=== PATIENT | female | born 1935 | race Caucasian/White ===

== ENCOUNTER → 2017-07-04 | Outpatient (CLI) | payer OTHER ==
[~2017-07-04] MED LIST: ASPIR 8181 MG PO; BONE DENSITY C1 EACH PO; CENTRUM SILVER1 EAC4 PO; LIPITOR10 MG PO; [UNRECOGNIZED DRUG - REMARK]
== END ==
LOC: M.RAD 11:07
DX: M81.0 Age-related osteoporosis without current pathological fracture (principal); M85.88 Other specified disorders of bone density and structure, other site; M48.061 Spinal stenosis, lumbar region without neurogenic claudication; M41.84 Other forms of scoliosis, thoracic region; M47.896 Other spondylosis, lumbar region

== ENCOUNTER → 2018-05-22 | Outpatient (CLI) | payer OTHER | LOC: M.RAD 13:26 | DX: Z12.31 Encounter for screening mammogram for malignant neoplasm of breast (principal) ==

== ENCOUNTER 2020-01-31 09:12 | Inpatient (IN) | payer MEDICARE ==
[~2020-01-31] VITALS: Ht 149.9 cm; Wt 43.8 kg
[2020-01-31 09:24] VITALS: BP 127/61
[2020-01-31 09:58] LABS: ABSOLUTE BASOPHILS 0.1 thou/uL (0.0-0.2); ABSOLUTE LYMPHOCYTES 1.3 thou/uL (0.8-5.3); ABSOLUTE MONOCYTES 0.7 thou/uL (0.0-1.2); ABSOLUTE NEUTROPHILS 4.5 thou/uL (1.6-8.1); EOSINOPHILS 0.6 %; HEMATOCRIT 35.8 % (37.0-47.0); HEMOGLOBIN 12.5 gm/dL (12.0-15.0); LYMPHOCYTES 19.5 %; MCH 33.7 pg (26.0-34.0); MCHC 34.9 g/dL (28.0-37.0); MCV 96.6 fL (80.0-100.0); MONOCYTES 10.6 %; NUCLEATED RBCS 0 /100WBC; PLATELET COUNT* 197 thou/uL (150-400); POLYS 68.3 %; RBC 3.71 mil/uL (4.20-5.00); RDW-CV 13.4 % (10.5-14.5); WBC 6.6 thou/uL (4.0-11.0)
[2020-01-31 10:06] LABS: APTT 24.3 Seconds (25.0-31.3); INR 1.1; PROTIME 10.9 Seconds (9.20-11.50)
[2020-01-31 10:17] LABS: CALCIUM 8.8 mg/dL (8.5-10.1)
[2020-01-31 10:22] LABS: ALBUMIN 3.4 g/dL (3.4-5.0); TOTAL BILIRUBIN 0.6 mg/dL (<0.1-1.0); TOTAL PROTEIN 6.9 g/dL (6.4-8.2)
[2020-01-31 11:20] LABS: URINE BILIRUBIN NEGATIVE (Negative); URINE BLOOD NEGATIVE (Negative); URINE CLARITY CLEAR; URINE COLOR YELLOW; URINE GLUCOSE-RANDOM NEGATIVE (Negative); URINE KETONES TRACE (Negative); URINE LEUKOCYTES-REFLEX TRACE (Negative); URINE NITRITE-REFLEX NEGATIVE (Negative); URINE PROTEIN NEGATIVE (Negative); URINE SPECIFIC GRAVITY 1.015 (1.005-1.030); URINE UROBILINOGEN 0.2 E.U./dl (0.2-1.0)
[2020-01-31 11:27] LABS: SQUAMOUS 4-10 Moderate /LPF (0-3)
[2020-01-31 11:28] LABS: BACTERIA-REFLEX None Seen /HPF (None Seen); CASTS None Seen /LPF (None Seen); MUCUS 4-6 Moderate strn/LPF (None Seen); RENAL EPITHELIAL CELLS 0-3 Few /LPF (None Seen); URINE RBC 0-2 Rare /HPF (0-2); URINE WBC-REFLEX 0-5 Rare /HPF (0-5)
[2020-01-31 11:29] LABS: AMORPHOUS PHOSPHATES Moderate /LPF (None Seen)
--- NOTE | 2020-01-31 13:00 | NUR ---
ER ADMIT TO 208 TELEPHONE REPORT GIVEN PRIOR TO ARRIVAL PATIENT TO FLOOR VIA CART AND 1 ASSIST TO BED DENIES PAIN SEE ADMISSION ASSMNT AND HX
[2020-01-31 13:02] VITALS: BP 129/64
[2020-01-31 13:15] VITALS: BP 100/70
[2020-01-31 19:50] VITALS: BP 117/74
[2020-02-01] VITALS (7 sets, daily range): BP systolic 134–168; BP diastolic 58–80
--- NOTE | 2020-02-01 05:54 | NUR ---
PATIENT PROGRESSING TOWARDS GOALS: PATIENT DENIES PAIN AND DISCOMFORT. ORIENTED X4. USING CALL LIGHT APPROPRIATELY AND CALLING FOR ASSISTANCE TO USE BATHROOM. PATIENT AMBULATES WITH MINIMAL ASSIST. CALL LIGHT WITHIN REACH
--- NOTE | 2020-02-01 10:06 | NUR ---
ASSUMED CARE OF PT AT 0730. PT SITTING AT EDGE OF BED WAITING FOR BREAKFAST. A&0X4, DENIES ANY PAIN OR SHORTNESS OF BREATH AT THIS TIME. TRACING SR ON THE ASSISTANT FARM OPERATIONS MANAGER. ON RA SAT 95%. IVF, IV ANTIBIOTICS AND IV THIAMINE INFUSED PER EMAR. PT UP WITH 1 MIN ASSIST. PT GOAL FOR TODAY IS IV ANTIBIOTICS AND FLUIDS, PT AND OT EVAL AND TREAT AND MAINTAIN SAFETY, OT HERE THIS AM AND WORKED WITH PT BEFORE BREAKFAST-TOLERATED WELL. DR KEENE HERE TO SEE PT THIS AM AND ORDERS RECEIVED TO OBTAIN ORTHOSTATS AND LABS IN AM. AM ASSESSMENT CHARTED. MEDICATIONS PER SEP. PT REPOSITIONS SELF. HOURLY ROUNDING OBSERVED. BED IN LOW POSITION. CALL LIGHT WITHIN REACH. WILL CONTINUE PLAN OF CARE.
--- NOTE | 2020-02-01 11:05 | EKG ---
[place] [address] ELECTROCARDIOGRAM REPORT Name: KAINABRAHAN A Room: [address] ADM IN .R.#: [id number] Admission: 01/31/20 Attend Phys: Cecil Astudillo Discharge: Date of : 39 Date of Service: 01/31/20920 Report #: [id number] THIS REPORT FOR: //name// [facility] ED Test Date: 2020-01-31 Test Time: 09:21:58 Pat Name: ABRAHAN FINNEGAN Department: Room: [facility] Gender: F Sustain Engineer: BRIAN : 1935 Requested By: Chon Betts Order Number: [id number] MD: Ab Jensen Measurements Intervals [place] Rate: 81 P: 44 W[place]: 148 QRS: 24 QRSD: 102 T: 21 QT: 375 QTc: 436 Interpretive Statements Sinus rhythm Abnormal R-wave progression, late transition Compared to ECG 03/29/2017 12:43:30 No significant changes Electronically Signed On 02-01-2020 11:05:28 CDT by Ab Jensen [email or web address] <ELECTRONICALLY SIGNED> By: Ab Jensen MD, [facility] 02/01/20 1105 Ab Jensen MD, [facility] /EPI
--- NOTE | 2020-02-01 14:33 | NUR ---
Pt is A&O. Resides at home alone. Pt's step son lives nearby and is available to assist as needed and Pt can go and stay with him if needed. Pt is independent with cooking and cleaning, [facility] provides transportation. No DME. No hx of HH or SNF. Pt is wanting HH at [facility], to arrange. Following.
--- NOTE | 2020-02-01 17:09 | NUR ---
NO ACUTE CHANGES THROUGHOUT SHIFT. REFER TO CHARTING. IVF DISCONTINUED TODAY PER DR KEENE. REFER TO EMAR. ORTHOSTATS [id number] TO CHARTING. PT IMPULSIVE AT TIMES. BED/CHAIR ALARM IN PLACE. PT UP TO CHAIR FOR MEALS. DAUGHTER IN LAW AT BEDSIDE THROUGHOUT AFTERNOON. PROGRESSING TOWARDS GOALS. POSSIBLE DISCHARGE TO HOME WITH HOME HEALTH TOMORROW. MEDS PER SEP. PT REPOSITIONS SELF. HOURLY ROUNDING OBSERVED. BED IN LOW POSITION. CALL LIGHT WITHIN REACH. WILL CONTINUE PLAN OF CARE.
--- NOTE | 2020-02-01 19:00 | NUR ---
RECEIVED REPORT FROM DAY RN AND ASSUMED CARE
[2020-02-02] VITALS: BP 156/76
[2020-02-02 04:00] VITALS: BP 145/74
[2020-02-02 05:01] LABS: HEMATOCRIT 36.6 % (37.0-47.0); HEMOGLOBIN 12.7 gm/dL (12.0-15.0); MCH 33.8 pg (26.0-34.0); MCHC 34.8 g/dL (28.0-37.0); RBC 3.77 mil/uL (4.20-5.00); RDW-CV 13.5 % (10.5-14.5); WBC 6.9 thou/uL (4.0-11.0)
[2020-02-02 05:29] LABS: ALBUMIN 2.8 g/dL (3.4-5.0); CALCIUM 8.1 mg/dL (8.5-10.1); CREATININE 0.7 mg/dL (0.6-1.3); POTASSIUM 3.6 mmol/L (3.5-5.1); TOTAL BILIRUBIN 0.3 mg/dL (<0.1-1.0)
--- NOTE | 2020-02-02 06:25 | NUR ---
I CONCUR WITH DOUGIE AMANDA'S ASSESSMENT. MEDS GIVEN PER E-MAR. PT REPORTING BACK PAIN. WILL CONTINUE WITH PLAN OF CARE.
[2020-02-02 07:45] VITALS: BP 142/90
--- NOTE | 2020-02-02 09:00 | NUR ---
ASSUMED CARE OF PT AT 0730. PT SITTING UP IN CHAIR WAITING FOR BREAKFAST. SON AT BEDSIDE AND UPDATED ON CURRENT PLAN OF CARE. PT A&0X3-4, FORGETFUL AT TIMES. DENIES ANY PAIN OR SHORTNESS OF BREATH AT THIS TIME. TRACING SR ON THE RESORT MANAGER. ON RA SAT 95%. PT UP SBA TO BATHROOM. PT GOAL FOR TODAY IS DISCHARGE TO HOME WITH HOME HEALTH. AM ASSESSMENT CHARTED. MEDICATIONS PER MAR. PT REPOSITIONS SELF WITH REMINDERS. HOURLY ROUNDING OBSERVED. BED IN LOW POSITION. BED/CHAIR ALARM IN PLACE. CALL LIGHT WITHIN REACH. WILL CONTINUE PLAN OF CARE.
[2020-02-02] MEDS ORDERED: BACTRIM DS TAB1 EAC1 PO (09:28)
[2020-02-02] MEDS ORDERED: ASA81BEC PO (09:29)
[2020-02-02 10:27] VITALS: BP 142/90
[2020-02-02 10:50] VITALS: BP 142/90
--- NOTE | 2020-02-02 10:52 | NUR ---
Pt discharging home today, CM [facility].
[2020-02-02 12:00] VITALS: BP 160/83
--- NOTE | 2020-02-02 14:08 | NUR ---
DISCHARGE ORDERS RECEIVED. DISCHARGE INSTRUCTIONS, CARE NOTES AND FOLLOW UP APPTS GIVEN TO PT. SON AT BEDSIDE DURING EDUCATION. PT AND SON COMMUNICATE UNDERSTANDING OF DISCHARGE TEACHING. IV AND SPECIALIST PHYSICIAN REMOVED. PT DISCHARGED WITH ALL BELONGINGS AND PAPERWORK VIA WHEELCHAIR WITH NURSING STAFF TO SPOUSE OWN PERSONAL VEHICLE. PT DISCHARGED TO HOME WITH HOME HEALTH.
== END 2020-02-02 14:08 | disposition home health service (06) | DRG 640 ==
LOC: M.ERS 09:12 → M.TBA-ER 11:29 → M.2W 11:29
PROVIDERS: Emergency Medicine Emergency Medical Services; Internal Medicine; ADMIT Internal Medicine; ATTEND Internal Medicine
DX: E86.1 Hypovolemia (principal); G92 Toxic encephalopathy; N39.0 Urinary tract infection, site not specified; E44.0 Moderate protein-calorie malnutrition; Z68.1 Body mass index [BMI] 19.9 or less, adult; E86.0 Dehydration; I95.9 Hypotension, unspecified; B96.89 Other specified bacterial agents as the cause of diseases classified elsewhere; Z98.42 Cataract extraction status, left eye; Z98.41 Cataract extraction status, right eye; Z79.82 Long term (current) use of aspirin; Z79.899 Other long term (current) drug therapy; Z03.818 Encounter for observation for suspected exposure to other biological agents ruled out

== ENCOUNTER 2021-08-11 10:55 | Emergency (ER) | payer MEDICARE ==
[~2021-08-11] VITALS: Ht 152.4 cm; Wt 55.3 kg
[~2021-08-11 10:55] MED LIST changes: +ASA81BEC PO; +BACTRIM DS TAB1 EAC1 PO
[2021-08-11] MEDS ORDERED: NORCO5 PO (13:08)
[2021-08-11 14:08] VITALS: BP 159/69
--- NOTE | 2021-08-11 14:26 | NUR ---
Pt came to the ER after falling. No fx noted. Received call from warehouse order filler that pt is needing Hospice [facility] [address]. Pt has hx of dementia. Met with son to complete assessment. Family provides 24 hour care between [employer], [facility], and themselves. Son works from home. Pt lives alone about a mile from her son's home. No hx of DME/HH/ or SNF. Pt does not take medications. Pt is requesting referral to [facility]. They arrived to admit pt. Faxed clinicals to [facility] at: [phone]. ER physician signed outside DNR. Ambulance was set up through [facility] to pick pt up to return home.
[2021-08-11 14:47] VITALS: BP 102/71
== END 2021-08-11 14:55 | disposition home or self-care (01) ==
LOC: M.ERS 10:55
DX: S32.038A Other fracture of third lumbar vertebra, initial encounter for closed fracture (principal); F03.90 Unspecified dementia, unspecified severity, without behavioral disturbance, psychotic disturbance, mood disturbance, and anxiety; Z90.89 Acquired absence of other organs; Z98.890 Other specified postprocedural states; W01.0XXA Fall on same level from slipping, tripping and stumbling without subsequent striking against object, initial encounter; Y93.89 Activity, other specified; Y92.091 Bathroom in other non-institutional residence as the place of occurrence of the external cause; Y99.8 Other external cause status